=== PATIENT | female | born 1970 | race Caucasian/White ===

== ENCOUNTER → 2016-11-06 | Outpatient (CLI) | payer OTHER ==
[~2016-11-06] MED LIST: ACETAMINOPHEN PO; ALBUTEROL17 GM INH; ALBUTEROL17 GM NEB; ALPRAZOLAM; AMITRIPTYLINE H25 MG PO; AUGMENTIN1 TAB.SR1 PO; BACLOFEN20 M1 PO; CELEXA PO; CITALOPRAM HBR40 MG PO; DILANTIN PO; DOLOBID500 MG PO; GLUCOVANCE; GLUCOVANCE 2.5/1 TA1; IBUPROFEN; IBUPROFEN800 MG PO; KEFLEX PO; KEPPRA500 MG PO; KEPPRA750 M1 PO; KLONOPIN2 MG PO; LIPITOR; LISINOPRIL; LISINOPRIL20 MG PO; LORTAB 7.5-5001 TAB PO; MEDROL DOSEPAK4 MG PO; MOBIC15 MG PO; OXAPROZIN600 MG; PAXIL PO; PAXIL40 MG PO; PERCOCET5/325 PO; PRINIVIL40 MG PO; PROVENTIL INHALER; ROBAXIN PO; SEROQUEL; SEROQUEL PO; SILVADENE TOP; THORAZINE PO; THORAZINE100 MG PO; TOPAMAX200 MG PO; TOPAMAX25 MG PO; TRAZODONE PO; TRICOR PO; VICODIN 5/1 TAB 5/50 PO; VICODIN ES 7.51 EACH PO; XANAX2 MG PO; ZANAFLEX PO; ZANAFLEX4 M1 PO
--- NOTE | ~2016-11-06 | US77 ---
[facility] A Service of [facility] RADIOLOGY TEXT RESULTS PATIENT: SAMANTHA KILLIAN LOCATION: [facility] : 68 UNIT #: [id number] AGE: [address]: Vu Ferris MD SEX: F ORDER DR: [id number] [facility] [address] [place], [place] [address] [id number] O MR#: [id number] Acc #: [id number] NAME: SAMANTHA KILLIAN : 1970 SEX: F STUDY DATE/TIME: 11/06/2016 12:58 UNIT: [facility] ROOM: STUDY DESCRIPTION: US Kidney Bilateral Complete Attending Physician: Vu Ferris M.D. Referring Physician: uV Ferris M.D. Ordering Physician: Vu Ferris M.D. Primary Care Physician: Yajaira Carbone M.D. MEDICAL IMAGING REPORT This report is preliminary unless electronic signature is present EXAM Renal ultrasound INDICATIONS Chronic kidney disease. Bilateral flank pain and chronic UTI. COMPARISON CT abdomen 11/10/2008 and 04/21/2006 FINDINGS The left kidney measures 8.7 cm. The right kidney measures 9.2 cm. There is mild renal cortical thinning. No hydronephrosis. There is a hypoechoic mass extending off the lower pole right kidney. This measures up to 2.0 cm. This is probably only partially imaged. Reviewing the patient's remote CT scan suggests that there was an angiomyolipoma in this region, however, the lack of reconstructions limits evaluation. I would recommend a new CT scan to confirm. The bladder is unremarkable. IMPRESSION 1. Mild renal atrophy. 2. 2 cm hyperechoic mass upper lower pole right kidney. 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 In retrospect, this lesion may be present on remote 2006 and 2008 examinations, however, multiplanar reconstructions were not available at that time to confirm. I would recommend confirmation with a new CT scan of the abdomen. 3. No hydronephrosis. Dictated by... Denilson Sierra M.D. [facility] A Service of [facility] RADIOLOGY TEXT RESULTS PATIENT: SAMANTHA KILLIAN LOCATION: [facility] : 68 UNIT #: [id number] AGE: [address]: Vu Ferris MD SEX: F ORDER DR: THIS IS AN ELECTRONICALLY VERIFIED REPORT Denilson Sierra M.D. at 11/07/2016 2:50 PM C/shobha TD: 11/06/2016 20:12 JOB #: [id number] MEDICAL IMAGING REPORT Page 1 of 1 COPY
== END | disposition home or self-care (01) ==
LOC: CWCC 10-28 11:15
DX: N18.3 Chronic kidney disease, stage 3 (moderate) (principal); N26.1 Atrophy of kidney (terminal); N28.89 Other specified disorders of kidney and ureter
CPT/HCPCS: 76770